=== PATIENT | female | born 1955 | race Caucasian/White ===

== ENCOUNTER → 2016-08-01 | Outpatient (CLI) | payer BC ==
--- NOTE | 2016-08-01 13:05 | RAD ---
History: Right hip pain. Pelvis: AP film is obtained. No prior study. Visualized joint spaces are well-maintained. Mild osteopenia is seen with no bony abnormality or acute injury. Sacroiliac joints appear normal. Visualized bowel gas pattern is unremarkable. IMPRESSION: Negative pelvis. Right knee: Standing AP and lateral views as well as a notch and patellar view are obtained. Joint space loss medially is demonstrated with bony osteophytes primarily laterally and in the patellofemoral joint. No significant joint effusion is seen. There is mild diffuse osteopenia without acute bony abnormality. IMPRESSION: Osteoarthritis. Electronically signed by: Mary Mccall MD 08/01/2016 1:04 PM CDT
== END | disposition home or self-care (01) ==
LOC: RAD 08:52
PROVIDERS: ATTEND Orthopaedic Surgery
DX: M25.561 Pain in right knee (principal); M25.551 Pain in right hip

== ENCOUNTER → 2017-03-04 | Outpatient (CLI) | payer BC | END | disposition home or self-care (01) | LOC: LAB.O 12:50 | PROVIDERS: ATTEND Orthopaedic Surgery | DX: Z01.812 Encounter for preprocedural laboratory examination (principal) ==

== ENCOUNTER → 2017-03-11 | Outpatient (CLI) | payer BC ==
--- NOTE | 2017-03-12 03:07 | RAD ---
Examination: XR CHEST 2 VIEWS dated 03/11/2017 11:29 AM UNEMPLOYMENT SPECIALIST History: ENCOUNTER FOR OTHER PREPROCEDURAL EXAMINATION Comparison: None Technique: Frontal and lateral views of the chest Findings: The lungs are clear bilaterally. No pneumothorax or pleural effusion. Aortic atherosclerosis. Normal cardiac silhouette. Impression: No acute disease. Electronically signed by: Alli Romero MD 03/12/2017 3:06 AM UNEMPLOYMENT SPECIALIST
== END | disposition home or self-care (01) ==
LOC: LAB.O 11:06
DX: Z01.812 Encounter for preprocedural laboratory examination (principal)

== ENCOUNTER 2017-03-18 06:00 | Inpatient (IN) | payer BC ==
--- NOTE | 2017-03-17 17:34 | HP ---
CHIEF COMPLAINT: Right knee pain. HISTORY OF PRESENT ILLNESS: Ms. Mi is a 61 year-old female with a history of knee pain that has been going on for several months. It is getting on to close to a year now. She has had no trauma related to the onset of this and says its onset was somewhat gradual. She has no neurologic symptoms and denies any current mechanical symptoms. She has had conservative measures, however, has failed to gain relief of those. Because of her ongoing symptoms and failure of conservative measures, she has requested operative intervention. After discussing the risks, benefits, and alternatives to that she gave informed consent for that. PAST SURGICAL HISTORY: 1. Rotator cuff repair. 2. Hysterectomy. 3. Appendectomy. CURRENT MEDICATIONS: 1. Boniva. ALLERGIES: NO KNOWN DRUG ALLERGIES. CODE STATUS: FULL CODE. IMMUNIZATIONS: Up to date. FAMILY HISTORY: None pertinent to today's complaints. SOCIAL HISTORY: She does not drink, smoke or use any illicit drugs. REVIEW OF SYSTEMS: Negative except as indicated in the History of Present Illness. PHYSICAL EXAMINATION: VITAL SIGNS: Blood pressure 181/86, pulse 66, height 5'3", weight 237. MENTAL STATUS: The patient is awake, alert, and is able to give a good history and participate in the physical. The patient is oriented to person, place and time. SKIN: Normal tone and turgor. HEENT: Normocephalic, atraumatic. Pupils equal, round and reactive. Mucosal membranes are moist. NECK: Normal range of motion. No thyromegaly, no lymphadenopathy. CHEST: Normal respiratory excursion. CARDIAC: Regular rate and rhythm. No murmurs, rubs or gallops. MUSCULOSKELETAL: Bilateral upper extremities show full active range of motion without pain. She has intact sensation. They are warm and well perfused. There is no deformity and strength is 5/5. The left lower extremity shows some crepitus with range of motion of the knee. She has no pain with range of motion of the hip. The entire extremity is warm and well perfused. There is no significant deformity. The right lower extremity shows pain with range of motion of the knee and crepitus throughout. She has a slight varus deformity. She has pain to palpation diffusely but most prominent along the medial aspect. There does not appear to be any varus, valgus, anterior or posterior laxity. X-RAYS: X-rays show advanced arthritis with varus deformity. ASSESSMENT: 1. End stage arthritis that has failed conservative measures. PLAN: The plan at this point is for a total knee arthroplasty. We have discussed the risks, benefits, and alternatives to that and she has given informed consent for that. #[id number] [facility]
[~2017-03-18 06:00] MED LIST: LACTATED RINGERS 1,000 ML ONE; SODIUM CHL 0.9% 100ML MINI-BAG 100 ML IVPB ONE; SODIUM CHLORIDE 0.9% 100ML 100 ML IVPB ONE; SODIUM CHLORIDE 0.9% 250ML 250 ML ONE; TRANEXAMIC ACID 1,000 MG/10 ML VIAL ONE; VANCOMYCIN HCL INJ 1,000 MG VIAL IVPB ONE; ceFAZolin SODIUM 1 GM VIAL ONE
[2017-03-18] MEDS ORDERED: MIDAZOLAM INJ 2 MG/2 ML VIAL ONE (06:14)
[2017-03-18] MEDS ORDERED: fentaNYL CITRATE INJ 50 MCG/ML AMP ONE (06:15)
[2017-03-18] MEDS ORDERED: LACTATED RINGERS 1,000 ML ONE ×2 (06:15→12:28)
[2017-03-18] MEDS ORDERED: ACETAMINOPHEN IV 1000MG 100 ML ONE (06:16)
[2017-03-18] MEDS ORDERED: VANCOMYCIN HCL INJ 1,000 MG VIAL IVPB ONE ×2 (07:16→19:38)
[2017-03-18] MEDS ORDERED: ceFAZolin SODIUM 1 GM VIAL ONE (07:16)
[2017-03-18] MEDS ORDERED: TRANEXAMIC ACID 1,000 MG/10 ML VIAL ONE (08:16)
[2017-03-18] MEDS ORDERED: MORPHINE SULFATE *EPIDURAL* 0.5 MG/ML VIAL ONE (09:04)
[2017-03-18] MEDS ORDERED: ZOLPIDEM TARTRATE 5 MG TAB PO PRN (09:50)
[2017-03-18] MEDS ORDERED: PROMETHAZINE HCL INJ 12.5 MG in SODIUM CHLORIDE 0.9% 50ML 50 ML IVPB PRN (09:50)
[2017-03-18] MEDS ORDERED: ACETAMINOPHEN 325 MG TAB PO PRN (09:50)
[2017-03-18] MEDS ORDERED: MORPHINE SULFATE INJ 10 MG/ML VIAL IM PRN (09:50)
[2017-03-18] MEDS ORDERED: DEX 5% W/NACL 0.45% 1000ML 1,000 ML IVS PRN (09:50)
[2017-03-18] MEDS ORDERED: PROMETHAZINE HCL INJ 25 MG in SODIUM CHLORIDE 0.9% 50ML 50 ML IVPB PRN (09:50)
[2017-03-18] MEDS ORDERED: BENZOCAINE-MENTH LOZ (CEPACOL) 1 EA LOZ MT PRN (09:50)
[2017-03-18] MEDS ORDERED: BISACODYL SUPPOSITORY 10 MG PR PRN (09:50)
[2017-03-18] MEDS ORDERED: MAGNESIUM HYDROXIDE 30 ML UD PO PRN (09:50)
[2017-03-18] MEDS ORDERED: ACETAMINOPHEN 500 MG TAB PO PRN (09:50)
[2017-03-18] MEDS ORDERED: TEMAZEPAM 15 MG CAP PO PRN (09:50)
[2017-03-18] MEDS ORDERED: SODIUM CHLORIDE 0.9% (FLUSH) 10 ML SYG IV PRN (09:50)
[2017-03-18] MEDS ORDERED: NALOXONE HCL INJ 0.4 MG/ML VIAL IV PRN (09:50)
[2017-03-18] MEDS ORDERED: MORPHINE SULFATE INJ 10 MG/ML VIAL IV PRN (09:50)
[2017-03-18] MEDS ORDERED: TRANEXAMIC ACID INJ 1,000 MG in SODIUM CHLORIDE 0.9% 100ML 100 ML IVPB ONE (09:50)
[2017-03-18] MEDS ORDERED: ALUMINUM & MAGNESIUM HYDROXIDE 30 ML UD PO PRN (09:50)
[2017-03-18] MEDS ORDERED: MORPHINE PCA 1 MG/ML 100ML 1 BAG in PREMIX BAG 1 BAG IVPB SCH (10:00)
[2017-03-18] MEDS: ceFAZolin SODIUM 1 GM VIAL ONE ×2 (10:50→11:46)
[2017-03-18] MEDS: VANCOMYCIN HCL INJ 1,000 MG VIAL IVPB ONE ×2 (10:50→11:46)
[2017-03-18] MEDS: BUPIVACAINE 0.5% W/EPI 30 ML VIAL INJ ONE ×2 (10:51→12:14)
[2017-03-18] MEDS ORDERED: DEXAMETHASONE INJ 10 MG/ML VIAL IV ONE (12:00)
[2017-03-18] MEDS ORDERED: LIDOCAINE 1% 10 ML VIAL INJ ONE (12:00)
[2017-03-18] MEDS ORDERED: PROPOFOL 200 MG/20 ML VIAL IV ONE (12:00)
[2017-03-18] MEDS ORDERED: METOCLOPRAMIDE HCL INJ 10 MG/2 ML VIAL IV ONE (12:00)
[2017-03-18] MEDS ORDERED: ONDANSETRON INJ 4 MG/2 ML VIAL IV ONE (12:00)
[2017-03-18] MEDS ORDERED: MORPHINE PCA 1 MG/ML 100 ML BAG IVPB ONE (12:37)
[2017-03-18] MEDS: IV SET AND CAP CHANGE INJ INJ SCH (15:33)
[2017-03-18] MEDS: ONDANSETRON INJ 4 MG/2 ML VIAL IV PRN (15:41)
[2017-03-18] MEDS ORDERED: CEFAZOLIN SODIUM 2 GRAMS IV 50 ML IVPB ONE ×2 (16:31→19:38)
[2017-03-18] MEDS: CEFAZOLIN SODIUM 2 GRAMS IV 2 GM in PREMIX BAG 1 BAG IVPB SCH (17:14)
[2017-03-18] MEDS ORDERED: HYDROmorphone PCA 0.2 MG/ML 1 BAG BAG IVPB ONE (17:23)
[2017-03-18] MEDS ORDERED: HYDROmorphone PCA 0.2 MG/ML 1 BAG BAG IVPB SCH (17:30)
[2017-03-18] MEDS ORDERED: HYDROmorphone HCL INJ 2 MG/ML VIAL IV PRN (17:35)
[2017-03-18] MEDS: CELECOXIB 100 MG CAP PO SCH (17:39)
[2017-03-18] MEDS ORDERED: PROMETHAZINE HCL INJ 25 MG/ML VIAL ONE (17:56)
[2017-03-18] MEDS ORDERED: SODIUM CHLORIDE 0.9% 50ML 0 ML ONE (17:56)
--- NOTE | 2017-03-18 18:53 | CONS ---
DATE OF CONSULTATION: 03/18/17 HISTORY OF PRESENT ILLNESS: This 61 year-old white female was admitted to the hospital earlier this morning for an elective surgery to include total replacement of the right knee because of significant pain worsening over the last year and a half. It was at the onset of this pain that something "popped" inside her right knee and has continued the hurting process ever since. She has failed to significantly improve with outpatient therapy and therefore required surgical intervention to assist with symptom control. The patient is now postoperative and has tolerated the procedure quite well. She is quite nauseated and has noted that itching and nausea and vomiting has gotten worse after starting to use the ROUTE SALES DELIVERY DRIVER pump with morphine as the active ingredient. This will be switched and close observation and management will continue as she continues on rehab postoperatively. PAST MEDICAL HISTORY: 1. Hypertension. PAST SURGICAL HISTORY: 1. Left shoulder repair. 2. Hysterectomy. 3. Appendectomy. 4. This morning's surgery with total replacement of the right knee. CURRENT MEDICATIONS: Please refer to the list provided by the nurses of verified home medications. ALLERGIES: TRAMADOL. FAMILY HISTORY: Positive for diabetes, hypertension, elevated cholesterol and coronary artery disease and father with cardiomyopathy. 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 REVIEW OF SYSTEMS: Shows that her weight is stable. No fever or chills. HEENT: No hearing or vision disturbances. LUNGS: No significant cough or hemoptysis. CARDIOVASCULAR: No significant chest pains or palpitations. GASTROINTESTINAL: Significant nausea and vomiting postoperatively. She has had vomiting after anesthesia in the past but she feels that most of her current symptoms are related to the morphine used in the ROUTE SALES DELIVERY DRIVER pump which will be changed. EXTREMITIES: Significant pain in the right knee requiring surgical intervention with arthroplasty performed earlier today. NEUROLOGIC: No focal neurological deficits. PHYSICAL EXAMINATION: VITAL SIGNS: Temperature 95.9, blood pressure 129/76, pulse oximetry 92% on nasal cannula. GENERAL: The patient is awake and alert. Moderate distress with occasional retching with emesis, usually dry in nature. CHEST: Lungs are generally clear. HEART: Tones are regular with a slight systolic murmur at the base of the heart. ABDOMEN: Soft with no organomegaly, masses or tenderness. Somewhat obese. SKIN: No skin rash noted on the skin. EXTREMITIES: Right knee is in a cooling blanket and has just completed its passive range of motion started for the first time after surgery. This was fairly well tolerated. Her nausea was worse after pushing the button for morphine analgesic assistance. NEUROLOGIC: No focal neurological deficits. LABORATORY: Please refer to preoperative lab in the chart. ASSESSMENT: 1. Immediate postoperative day zero total right knee arthroplasty performed by Dr. Kyler Saba, orthopedic surgeon. 2. Significant osteoarthritis involving the right knee failing outpatient treatment options and requiring surgical intervention to assist with symptom control. 3. Nausea and vomiting and pruritus possibly secondary to the morphine ROUTE SALES DELIVERY DRIVER pump but also consider cleansing the skin after Hibiclens bath to see if it will help the pruritic symptoms. 4. Hypertension by history. PLAN: The patient will be entered into ongoing rehabilitation supervised by Physical Therapy and Orthopedic Surgery. This will be in an effort to get her strong and confident to the point where she will safely be able to return home. She will have ongoing outpatient followup at the [facility] which is close to her home after she has reached the point of rehab allowing her to safely return home. #[id number] [facility]
[2017-03-18] MEDS ORDERED: DOCUSATE CALCIUM 240 MG CAP ONE (19:38)
[2017-03-18] MEDS ORDERED: ENOXAPARIN SODIUM 30 MG/0.3 ML SYG SUBCU ONE (19:38)
[2017-03-18] MEDS ORDERED: SODIUM CHLORIDE 0.9% 250ML 250 ML ONE (19:38)
[2017-03-18] MEDS: VANCOMYCIN HCL INJ 1,000 MG in SODIUM CHLORIDE 0.9% 250ML 250 ML IVPB SCH (20:07)
[2017-03-18] MEDS: DOCUSATE CALCIUM 240 MG CAP PO SCH (20:45)
[2017-03-19] MEDS: ENOXAPARIN SODIUM 30 MG/0.3 ML SYG SUBCU SCH ×2 (00:07→11:32)
[2017-03-19] MEDS: CEFAZOLIN SODIUM 2 GRAMS IV 2 GM in PREMIX BAG 1 BAG IVPB SCH ×2 (02:19→09:51)
[2017-03-19] MEDS: CYCLOBENZAPRINE HCL 10 MG TAB PO PRN (02:26)
[2017-03-19] MEDS: HYDROcodone 5MG/APAP 325MG 1 EA TAB PO PRN (04:22)
[2017-03-19] MEDS ORDERED: SODIUM CHLORIDE 0.9% 250ML 250 ML ONE (07:12)
[2017-03-19] MEDS ORDERED: VANCOMYCIN HCL INJ 1,000 MG VIAL IVPB ONE (07:13)
[2017-03-19] MEDS: VANCOMYCIN HCL INJ 1,000 MG in SODIUM CHLORIDE 0.9% 250ML 250 ML IVPB SCH (07:36)
[2017-03-19] MEDS: CELECOXIB 100 MG CAP PO SCH ×2 (07:36→17:33)
--- NOTE | 2017-03-19 07:50 | OP ---
DATE OF PROCEDURE: 03/18/17 PREOPERATIVE DIAGNOSIS: 1. Right knee osteoarthritis. POSTOPERATIVE DIAGNOSIS: 1. Right knee osteoarthritis. PROCEDURE: 1. Right total knee arthroplasty. SURGEON: Kyler Saba MD. MANAGER SOCIAL RESPONSIBILITY: Tomas Ho CST, SA-C. ANESTHESIA: General. COMPLICATIONS: None. FINDINGS: Severe arthritis of the knee with varus deformity. INDICATION: Ms. Mi has a long history of severe pain in the knee. She has had conservative measures to try to ameliorate the pain, however, has failed to gain relief. Because of her ongoing pain, she has requested operative intervention. After discussing the risks, benefits and alternatives to that, the patient has given informed consent for total knee arthroplasty. PROCEDURE: The patient was brought to the Operating Room and placed in supine position. General anesthesia was induced and the patient's leg was sterilely prepped and draped. Following prepping and draping, the distal femur was exposed and using an intramedullary guide, the distal femoral cut was made. The appropriate sized cutting block was measured, pinned into place, and the anterior, posterior, and chamfer cuts were made. The ACL was transected and the tibia was subluxed. Both the medial and lateral menisci were removed. An intramedullary guide was used to make the proximal tibial cut. The appropriate sized base plate was placed and a trial polyethylene was placed. The trial femur was placed, the knee was reduced, and the knee was taken through a range of motion. The knee was stable in anterior, posterior, varus and valgus stress. The patella tracked anatomically without evidence of subluxation or dislocation. After trialing, the trial components were removed and the bony surfaces were thoroughly irrigated with saline. Following irrigation, the surfaces were dried and the final components were cemented into place. The excess cement was removed and the remaining cement was allowed to cure. The knee was again taken through a range of motion to confirm stability. The wound was then irrigated with saline and closure was performed using PDS to approximate the arthrotomy followed by closure of the subcutaneous tissues with a combination of running and interrupted Monocryl sutures. Sterile dressing was placed. The patient was awoken from anesthesia and taken to Recovery. POSTOPERATIVE INSTRUCTIONS: The patient will be weight-bearing as tolerated on postoperative day 1. COMPONENTS: BlueSwarm Triathlon knee, size 4 femur, size 3 tibia, 11 mm insert. #[id number] [facility]
[2017-03-19] MEDS: MAGNESIUM OXIDE 400 MG TAB PO SCH (08:44)
[2017-03-19] MEDS ORDERED: CEFAZOLIN SODIUM 2 GRAMS IV 50 ML IVPB ONE (09:12)
--- NOTE | 2017-03-19 09:18 | PN ---
DATE: 03/19/17 SUBJECTIVE: She is doing pretty well. Her pain seems to be well controlled. She does have a little bit of nausea. OBJECTIVE: Afebrile. Vital signs stable. Dressing is clean, dry and intact. ASSESSMENT: Status post total knee arthroplasty. PLAN: She will begin physical therapy for weight-bearing as tolerated. We will work on her nausea as well. #[id number] [facility]
[2017-03-19] MEDS: ONDANSETRON INJ 4 MG/2 ML VIAL IV PRN (09:35)
--- NOTE | 2017-03-19 11:25 | PN ---
DATE: 03/19/17 SUBJECTIVE: The patient had a rough time last evening with problems and nausea and vomiting, a little improved today, though still present. Most of the symptoms apparently started after starting the morphine GRINDER OPERATOR pump. This was switched to a Dilaudid which has seemed to have helped her pain without as much nausea. The possibility of residual effects of the Astramorph given at the time of surgery also to be considered. No bowel movements yet. She usually has relief of some of her stomach symptoms when taking Zantac, so this will be re-started. She does not like liquid medicine, so the Mylanta will be stopped. OBJECTIVE: VITAL SIGNS: See vitals. LUNGS: Clear. HEART: Tones are regular. ABDOMEN: Diminished bowel tone activity. Still fairly soft with no organomegaly evident. No rebound tenderness present. EXTREMITIES: No draining into the dressing of the right knee incision. Dressings to be changed by tomorrow for continued evaluation. continues with physical therapy rehab. No significant increased pain upon weight-bearing with most of her discomfort when the leg is extended at a slight downward position while in the reclining chair. She will work on improved comfort with positioning of her extremity. ASSESSMENT: 1. Postoperative day E1 total right knee arthroplasty. 2. Significant osteoarthritis involving the right knee, failing outpatient treatment options and requiring surgical intervention to assist with symptom control. 3. Nausea and vomiting and pruritus, probably secondary to the morphine GRINDER OPERATOR with some slight residual even this morning, possibly related to the Astramorph given to the patient at the time of surgical induction. 4. Hypertension by history. PLAN: Continue with rehabilitation. Continue to observe. Improved pain control as possible. Advance diet slowly as progressed. We will add Zantac 150 mg b.i.d. to assist with some of her GI symptoms and observe closely. Reevaluate as rehab continues. #[id number] [facility]
--- NOTE | 2017-03-19 17:20 | RAD ---
EXAM DESCRIPTION: Knee,Right 2 or More Views CLINICAL HISTORY: 61 years, Female, TKA COMPARISON: August 01, 2016 TECHNIQUE: Two views of the right knee FINDINGS: Right total knee arthroplasty with good apposition of the metallic femoral and tibial components to the underlying bone is noted. A patellar articular surface does not appear to have been placed. Air and fluid within the suprapatellar bursa is noted. Alignment is anatomic. IMPRESSION: 1. Satisfactory right total knee replacement. Electronically signed by: Familia Holly MD 03/19/2017 5:18 PM [facility]
[2017-03-19] MEDS: DOCUSATE CALCIUM 240 MG CAP PO SCH (21:10)
[2017-03-20] MEDS: ENOXAPARIN SODIUM 30 MG/0.3 ML SYG SUBCU SCH ×2 (00:26→11:56)
[2017-03-20] MEDS: HYDROcodone 5MG/APAP 325MG 1 EA TAB PO PRN ×3 (05:29→19:42)
[2017-03-20] MEDS: CELECOXIB 100 MG CAP PO SCH ×2 (07:30→16:47)
[2017-03-20] MEDS: SODIUM CHLORIDE 0.9% (FLUSH) 10 ML SYG IV SCH ×2 (08:13→20:49)
[2017-03-20] MEDS: MAGNESIUM OXIDE 400 MG TAB PO SCH (08:14)
--- NOTE | 2017-03-20 19:25 | PN ---
DATE: 03/20/17 SUBJECTIVE: The patient is much more relaxed and having much less pain today compared to yesterday. The stress of the abdominal discomfort is significantly improved after restarting some Zantac. No further vomiting and her oxygen saturation is much improved. OBJECTIVE: LUNGS: Clear. HEART: Tones regular. ABDOMEN: Obese yet soft. Much less pain even on weightbearing in the right knee. Oxygenation is much improved. Afebrile, blood pressure 121/71, pulse oximetry 96% on room air. Weight is yet to be taken. No repeat lab studies. ASSESSMENT: 1. Postoperative day #2 total right knee arthroplasty performed by Dr. Kyler Saba, orthopedic surgeon. 2. Significant osteoarthritis involving the right knee having failed outpatient treatment options and requiring surgical intervention to assist with symptom control. 3. Nausea, vomiting and pruritus quite severe nature immediately postoperatively and may have been related to significant reaction to morphine in the RUBBER PRESS TENDER pump which was switched to Dilaudid and the patient showed some fairly significant slow but steady improvement. 4. Hypertension by history. PLAN: Continue with rehabilitation in an effort to assist the patient achieve her maximum rehab potential so that she will be able to safely return home. The patient and her both feel that she is getting close to that point and a final decision as to whether she could be discharged can be made by tomorrow. #[id number] [facility]
[2017-03-20] MEDS: CYCLOBENZAPRINE HCL 10 MG TAB PO PRN (19:42)
[2017-03-20] MEDS: DOCUSATE CALCIUM 240 MG CAP PO SCH (20:49)
[2017-03-21] MEDS: ENOXAPARIN SODIUM 30 MG/0.3 ML SYG SUBCU SCH (00:43)
[2017-03-21 06:42] VITALS: O2SAT 95
[2017-03-21] MEDS: SODIUM CHLORIDE 0.9% (FLUSH) 10 ML SYG IV SCH (08:10)
[2017-03-21] MEDS: CELECOXIB 100 MG CAP PO SCH (08:11)
[2017-03-21] MEDS: MAGNESIUM OXIDE 400 MG TAB PO SCH (08:11)
--- NOTE | 2017-03-21 08:11 | PN ---
DATE: 03/20/17 SUBJECTIVE: Ms. Mi is doing well. She has no complaints. OBJECTIVE: Afebrile. Vital signs stable. Her wound is clean. There are no signs or symptoms of infection. ASSESSMENT: Status post total knee arthroplasty. PLAN: She will continue with physical therapy. She will continue weight- bearing as tolerated and be discharged when she meets her discharge criteria. #[id number] [facility]
--- NOTE | 2017-03-21 08:18 | PN ---
DATE: 03/21/17 SUBJECTIVE: Ms. Mi is doing well. OBJECTIVE: Afebrile. Vital signs stable. Wound is clean. There are no signs or symptoms of infection. ASSESSMENT: Status post total knee arthroplasty. PLAN: She will continue with physical therapy. [facility][id number] [facility]
[2017-03-21] MEDS: IV SET AND CAP CHANGE INJ INJ SCH (09:03)
[2017-03-21 09:46] VITALS: BP 160/82; TEMP 98.5
[2017-03-21] MEDS: CYCLOBENZAPRINE HCL 10 MG TAB PO PRN (10:14)
[2017-03-21] MEDS: HYDROcodone 5MG/APAP 325MG 1 EA TAB PO PRN (10:14)
[2017-03-21] MEDS ORDERED: BISACODYL SUPPOSITORY 10 MG PR ONE (21:00)
[2017-03-21] MEDS ORDERED: MAGNESIUM HYDROXIDE 30 ML UD PO ONE (21:00)
--- NOTE | 2017-03-31 08:05 | DS ---
SUPERVISING PHYSICIAN: Alli Crowe MD DISCHARGE DIAGNOSIS: 1. Postoperative day #3 total right knee arthroplasty performed by Dr. Kyler Saba, orthopedic surgeon. 2. Significant osteoarthritis involving the right knee having failed outpatient treatment options and requiring surgical intervention to assist with symptom control. 3. Nausea, vomiting and pruritus felt to be secondary to postoperative medications including to morphine in the CORRECTIONS SERGEANT pump, showing improvement once switched to Dilaudid with no recurrence of pruritus. 4. Hypertension by history. HISTORY OF PRESENT ILLNESS: Ms. Mi is a 61-year-old female patient that was admitted to the hospital on 03/18/17 for an elective surgery to include total replacement of the right knee because of significant pain worsening over the last year and a half. It was at the onset of this pain that something "popped" inside her right knee and has continued the hurting process ever since. She had failed to significantly improve with outpatient therapy and therefore required surgical intervention to assist with symptom control. The patient was seen in immediate postoperative state and followed through her hospitalization course until discharge. She was in stable condition immediately postoperatively. LABORATORY: Postoperative hemoglobin 13 and hematocrit 40.2. Urinalysis on showed a trace of intact blood with small leukocyte esterase. RBCs were 5 to 50, WBCs too numerous to count with 20 to 30 epithelials with 2+ amorphus and 2+ bacteria. MICROBIOLOGY: Urine culture showed no growth at 48 hours. RADIOLOGY: There are no radiographic studies to review. PROCEDURE: Right total knee arthroplasty performed by Dr. Kyler Saba. Please see his operative report for full details. HOSPITAL COURSE: The patient was seen immediately postoperatively and followed through her rehabilitation physical therapy efforts. She did have a little nausea postoperatively that was felt to be due to Dilaudid. This resolved once she was taken off Dilaudid pump. She did respond with some Zantac, but had no recurrence of the GI symptoms. She did well with her physical therapy and had met goals on date of discharge and was felt well enough to be discharged. She will continue with outpatient physical therapy. PLAN: The patient is discharged on 03/21/17 with instructions to continue with rehab and have close clinical followup as scheduled with Dr. Saba. She was to return to the hospital should she have any concerning symptoms. She has a followup appointment on 04/04/17 at 10 AM. She has continued physical therapy through [facility] in [place], [place], phone number [phone]. ACTIVITY: Per physical therapy. DIET: Regular diet as tolerated. WOUND CARE: Per Dr. Saba's instructions. She was to have no tub baths and showers only. NEW MEDICATIONS AT DISCHARGE: 1. Zofran 4 mg q.4h. as needed, #15. 2. Flexeril 10 mg q.8h. as needed, #15. 3. Xarelto 10 mg daily, #8. All other medications were resumed as previous to hospitalization. CONDITION AT DISCHARGE: Stable and improved. #[id number] [facility]
== END 2017-03-21 13:07 | disposition home or self-care (01) | DRG 470 ==
LOC: AMB 06:00 → MS 13:50
PROVIDERS: ADMIT Orthopaedic Surgery; ATTEND Nurse Practitioner Family
PROC: 0SRC0J9 Replacement of Right Knee Joint with Synthetic Substitute, Cemented, Open Approach (ICD-10-PCS; principal; 2017-03-18 10:12)
DX: M17.11 Unilateral primary osteoarthritis, right knee (principal); I10 Essential (primary) hypertension; R11.2 Nausea with vomiting, unspecified; L29.9 Pruritus, unspecified; T40.2X5A Adverse effect of other opioids, initial encounter; Y92.238 Other place in hospital as the place of occurrence of the external cause; Z88.6 Allergy status to analgesic agent